=== PATIENT | female | born 1985 | race American Indian/Alaskan Native ===

== ENCOUNTER 2016-10-27 13:27 | Emergency (ER) | payer SELFPAY ==
--- NOTE | 2016-10-27 15:23 | Emergency Department Report ---
Chief Complaint: Psych Stated Complaint: exhaustion Time Seen by Provider: 10/27/16 15:05 - HPI History of Present Illness: Patient here reports that she walked from [place] and not sure when she got here.denies SI or Homicide ideation. Report confusion and exhaustion. Pain to both and legs. H/o psychiatric disorder. Take lithium but has not taken for four days. denies nausea or vomiting. Pain 5/10 and achy worst with movement and better rest. Pt lives in [place]. Denies abdominal pain - ROS Review of Systems: All systems are negative unless stated in HPI above - Exam Vital Signs: Vital Signs 10/27/16 14:51 Temperature 98.1 F Pulse Rate 88 Respiratory 18 Rate Blood Pressure 126/66 O2 Sat by Pulse 100 Oximetry Physical Exam: General: This is a 31 year old pt who looks tires. Non-toxic in appearance PSYCH: Denies SI or HI. normal mood and behavior. denies hallucination. MSE screening note: Focused history and physical exam performed. Due to findings the following was ordered:See MDM ED Medical Decision Making - Medical Decision Making MDM: Patient screened by provider in triage area. Appropriate protocol initiated and patient to be seen in main ED by MD ED Disposition for MSE Condition: Stable
[2016-10-27 15:43] LABS: Basophils % (Auto) 0.8 % (0.0-1.8); Hematocrit 31.3 % (30.3-42.9); Hemoglobin 9.9 gm/dl (10.1-14.3); Mean Corpuscular HGB Conc 32 % (30-34); Mean Corpuscular Volume 76 fl (79-97); Platelet Count 351 K/mm3 (140-440); White Blood Count 8.6 K/mm3 (4.5-11.0)
[2016-10-27 15:44] LABS: Mean Corpuscular Hemoglobin 24 pg (28-32)
[2016-10-27 15:55] LABS: Anion Gap 18 mmol/L; BUN/Creatinine Ratio 6.25; Blood Urea Nitrogen 5 mg/dL (7-17); Calcium 8.8 mg/dL (8.4-10.2); Carbon Dioxide 22 mmol/L (22-30); Chloride 105.5 mmol/L (98-107); Glucose 87 mg/dL (65-100); Potassium 3.9 mmol/L (3.6-5.0); Sodium 142 mmol/L (137-145)
[2016-10-27] MEDS ORDERED: ALUM-MAG HYDROX-SIMETH 200-200-20MG/5ML PO PRN (17:23)
[2016-10-27] MEDS ORDERED: TYLENOL PO PRN (17:23)
--- NOTE | 2016-10-27 17:30 | Emergency Department Report ---
HPI - General Chief Complaint: Psych Time Seen by Provider: 10/27/16 15:23 - HPI HPI: The patient is a 30-year-old female with a history of schizophrenia, presents for evaluation of mental health. The patient reports constant, severe, sadness and hearing voices, present for the past one week. She shares that she hitch hiked from [place]. She states that she does not know why she did this. The patient denies fever, headache, unexplained weight loss or weight gain, heat or cold intolerance, skin, hair, or nail changes, neuro deficits, homicidal ideations, or visual hallucinations. ED Past Medical Hx - Past Medical History Previous Medical History?: Yes Hx Psychiatric Treatment: Yes - Surgical History Past Surgical History?: No - Social History Smoking Status: Current Every Day Smoker Substance Use Type: Alcohol, Prescribed - Medications Home Medications: Home Medications Medication Instructions Recorded Confirmed Last Taken Type Amoxicillin/K Clav Tab [Augmentin 1 tab PO Q12HR 10/27/16 10/27/16 Unknown History 875 mg] Ferrous Sulfate [Feosol] 325 mg PO BID 10/27/16 10/27/16 Unknown History [place] Carbonate [Eskalith] 150 mg PO 10/27/16 Unknown History Trazodone HCl [Trazodone HCl] PO 1XW 10/27/16 Unknown History ED Review of Systems ROS: Stated complaint: exhaustion Other details as noted in HPI Constitutional: denies: fever ENT: denies: throat or neck pain Respiratory: denies: cough, shortness of breath Cardiovascular: denies: chest pain Endocrine: denies unexplained weight loss or gain Gastrointestinal: denies: abdominal pain, nausea Genitourinary: denies: dysuria Musculoskeletal: denies: leg swelling Skin: denies: rash Neurological: reports headache Hematological/Lymphatic: denies: easy bleeding or easy bruising Psych: reports sadness Physical Exam - Physical Exam Vital Signs: Vital Signs 10/27/16 14:51 Temperature 98.1 F Pulse Rate 88 Respiratory 18 Rate Blood Pressure 126/66 O2 Sat by Pulse 100 Oximetry Physical Exam: General: well-nourished, well-developed, no acute distress Head: Normocephalic, atraumatic Eyes: normal sclera ENT: Mucous membranes are pink and moist Neck: trachea midline, neck supple, No neck stiffness, no cervical adenopathy Respiratory: Breath sounds equal bilaterally, no wheezing, rales, or rhonchi Cardio: S1 and S2 present, no murmurs, rubs, gallops, capillary refill is brisk Abdomen: Normoactive bowel sounds, soft abdomen, no rigidity, no guarding or rebound tenderness Chest WALL/Back: No tenderness to palpation of the chest wall, no CVA tenderness with percussion Musc: No pitting edema Skin: No rash Neuro: no facial drooping, normal speech Psych: Flat affect, patient delusional, poor insight, positive auditory hallucinations ED Course Vital Signs 10/27/16 14:51 Temperature 98.1 F Pulse Rate 88 Respiratory 18 Rate Blood Pressure 126/66 O2 Sat by Pulse 100 Oximetry ED Medical Decision Making - Lab Data Result diagrams: 10/27/16 15:22 10/27/16 15:22 - Medical Decision Making The patient was seen and examined by myself. The patient is placed on a engine buildup mechanic and continuous pulse ox. On initial evaluation, the patient was found to be in no distress. Labs are obtained. Lab results are grossly unremarkable. The patient is medically clear. Mental health is consulted. Mental health evaluates the patient and agrees that the patient is exhibiting signs and symptoms consistent with acute psychosis. An extended family member the patient was contacted and they share that the patient was released from a mental health facility in [place] and that she has been missing since release. She says that the patient's mother will want to pick the patient. A 1013 is completed. The patient will be admitted to a psychiatric facility once bed placement is obtained. Critical care attestation.: If time is entered above; I have spent that time in minutes in the direct care of this critically ill patient, excluding procedure time. ED Disposition Clinical Impression: Paranoid type schizophrenia, chronic state with acute exacerbation, Acute psychosis Depressed Qualifiers: Depression Type: major depressive disorder Major depression recurrence: single episode Active/Remission status: currently active Major depression episode severity: moderate Qualified Code(s): F32.1 - Major depressive disorder, single episode, moderate Disposition: DC/TX-65 PSY HOSP/PSY UNIT Is pt being admited?: No Does the pt Need Aspirin: No Condition: Serious Time of Disposition: 17:24
[2016-10-27 18:59] LABS: Urine Drugs of Abuse Note Disclamer
[2016-10-27 19:08] LABS: Bilirubin,Urine NEG (Negative); Blood,Urine NEG (Negative); Ketones,Urine 20 mg/dL (Negative); Leukocyte Esterase,Urine NEG (Negative); Mucus,Urine 3+ /HPF; Nitrite,Urine NEG (Negative); Urobilinogen,Urine < 2.0 mg/dL (<2.0)
--- NOTE | 2016-10-28 19:43 | Consultation ---
History of Present Illness - Reason for Consult Reason for consult: psych consult - Chief Complaint Chief complaint: cc: "took off walking and got lost" Patient is a 30 year old WM with prior psych history of SCPT who presents to [facility] after noting that she's been walking for several days lost and ended up in the hospital. When asked what has been occurring the last several days, patient notes that she's unable to remember the last few days of events. She admits that she's depression but is vague with details. She denies any issues with SI. No AV, VH, or HI either. She denies any current psychosis or euphoria. He current preoccupation is to get back on several of her meds and for her family to come pick her up. Medications and Allergies Allergies Allergy/AdvReac Type Severity Reaction Status Date / Time No Known Allergies Allergy Unverified 10/27/16 15:02 Home Medications Medication Instructions Recorded Confirmed Last Taken Type Amoxicillin/K Clav Tab [Augmentin 1 tab PO Q12HR 10/27/16 10/27/16 Unknown History 875 mg] Ferrous Sulfate [Feosol] 325 mg PO BID 10/27/16 10/27/16 Unknown History [place] Carbonate [Eskalith] 150 mg PO 10/27/16 Unknown History Trazodone HCl [Trazodone HCl] PO 1XW 10/27/16 Unknown History Active Meds: Active Medications Acetaminophen (Tylenol) 650 mg PO Q4HR PRN PRN Reason: Pain MILD(1-3)/Fever >100.5/PATEL Al Hydrox/Mg Hydrox/Simethicone (Alum-Mag Hydrox-Simeth [id number]/5ml) 30 ml PO Q4HR PRN PRN Reason: Indigestion Past psychiatric history - Past Medical History Past Medical History: seizures - past Psychiatric treatment and history psychiatric treatment history: Inpt: patient can't give details- she claims recent inpt stay a couple of week ago in [place], [place]. h/o SCPT dx [address] [employer] patient notes prior psych meds of Gabapentin, [place] and Haldol No family psych history No Abuse history No substance abuse history - Social History Social history: other (lives with family in [place]. not dating, no children or work , 9th grade education, has family support) Mental Status Exam - Vital signs Last Vital Signs Temp 98.4 F 10/28/16 18:39 Pulse 60 10/28/16 18:39 Resp 16 10/28/16 18:39 BP 103/70 10/28/16 18:39 Pulse Ox 100 10/28/16 18:39 - Exam Orientation: time, place, person Affect: normal Mood: appropriate Thought content: other (impoverished) Thought Process: Disorganized Perceptions: none Speech: normal rate and pattern Concentration: distractible Motor activity: restless Level of consciousness: alert Memory: Recent Impaired (patient is able to spell WORLD backwards, repeats 7 digits correctly, no time date and place, names three presidnets backwards) Results Result Diagrams: 10/27/16 15:22 10/27/16 15:22 All other labs normal. Assessment and Plan Assessment and plan: Patient is a 30 year old WM with prior psych history of SCPT who presents to [facility] after noting that she's been walking for several days lost and ended up in the hospital. When asked what has been occurring the last several days, patient notes that she's unable to remember the last few days of events. A/P: SCPT versus SCAD-unspecified disorganization: use risperdal at 1mg po qhs for psychosis- discussed risks, side effects and benefits mood: use [place] 300mg po BID restart outpt gabapentin
[2016-10-28] MEDS: NEURONTIN PO SCH (22:16)
[2016-10-28] MEDS: RisperDAL PO SCH (22:16)
[2016-10-28] MEDS: ESKALITH PO SCH (22:16)
[2016-10-29] MEDS: ESKALITH PO SCH ×2 (11:00→22:01)
[2016-10-29] MEDS: NEURONTIN PO SCH ×2 (11:00→22:05)
--- NOTE | 2016-10-29 13:23 | Progress Note ---
Subjective - Reason for Consult Consult date: 10/29/16 Reason for consult: Psychiatry Follow-up - Chief Complaint Chief complaint: "What day is it" Patient is a 30 year old WM with prior psych history of SCPT who presents to [facility] after noting that she's been walking for several days lost and ended up in the hospital. Today patient is calm and cooperative during the assessment. She stated that she walked from [place]. She could not state why she walked from [place] to [place]. She stated that she have not taken her medications in weeks. She stated that she does see a psychiatrist in [place]. She rate her depression 7/10, with 10 being the worse. She denies SI/HI's and AVH's. Patient still presenting with a disorganized thought process. She stated that her family will pick her up when possible. Mental Status Exam - Vital signs Last Vital Signs Temp 98 F 10/29/16 04:24 Pulse 71 10/29/16 04:24 Resp 16 10/29/16 08:02 BP 104/70 10/29/16 04:24 Pulse Ox 18 L 10/29/16 08:02 - Exam Narrative exam: MSE: Appearance: calm, cooperative Behavior: regular eye contact Speech: regular rate and tone Mood: "depressed" withdrawn Affect: labile Thought Process: disorganized Thought Content: denies SI/HI's and AVH's Motor Activity: ambulatory Cognition: A/O x3 Insight: limited Judgment: limited Assessment and Plan Impression: SCPT vs SCAD - Unspecified. Today patient is calm and cooperative during the assessment. Patient has a disorganized thought process. Recommendation/Plan: Continue 1013 with placement to inpatient psy services. Continue [place] 300 mg Po BId for mood, Risperdal 1 mg PO HS for psychosis - discussed risks, side effects and benefits and Gabapentin 300 mg PO BID.
[2016-10-29] MEDS: RisperDAL PO SCH (22:08)
[2016-10-30] MEDS: ESKALITH PO SCH ×2 (09:31→21:30)
[2016-10-30] MEDS: NEURONTIN PO SCH ×2 (09:31→21:30)
--- NOTE | 2016-10-30 13:45 | Progress Note ---
Subjective - Reason for Consult Consult date: 10/30/16 Reason for consult: Psychiatry Follow-up - Chief Complaint Chief complaint: "Can my family pick me up" Patient is a 30 year old WM with prior psych history of SCPT who presents to [facility] after noting that she's been walking for several days lost and ended up in the hospital. Today patient is calm and cooperative during the assessment. She is still presenting with a disorganized thought process. I had to interject several times during the conversation about how the 1013. She continue to say, "I don't understand the 1013." Also, she is adamant about her family picking her up. Her family lives in [place]. She denies any side effects of her medications. Mental Status Exam - Vital signs Last Vital Signs Temp 98.1 F 10/30/16 06:00 Pulse 66 10/30/16 06:00 Resp 14 10/30/16 06:00 BP 115/64 10/30/16 06:00 Pulse Ox 18 L 10/29/16 08:02 - Exam Narrative exam: MSE: Appearance: calm, cooperative Behavior: regular eye contact Speech: regular rate and tone Mood: "I still feel down" Affect: labile Thought Process: disorganized Thought Content: denies SI/HI's and AVH's Motor Activity: ambulatory Cognition: A/O x3 Insight: limited Judgment: limited Assessment and Plan Impression: SCPT vs SCAD - Unspecified. Today patient is calm and cooperative during the assessment. Patient has a disorganized thought process. Recommendation/Plan: Continue 1013 with placement to inpatient psy services. Continue [place] 300 mg PO BID for mood, Risperdal 1 mg PO HS for psychosis - discussed risks, side effects and benefits and Gabapentin 300 mg PO BID. Possibly increase antipsychotic in 24 hours if patient's disorganize thought process don't improve.
[2016-10-30] MEDS: RisperDAL PO SCH (21:30)
[2016-10-31] MEDS: ESKALITH PO SCH ×2 (10:26→22:05)
[2016-10-31] MEDS: NEURONTIN PO SCH ×2 (10:27→23:05)
--- NOTE | 2016-10-31 15:10 | Progress Note ---
Subjective - Reason for Consult Consult date: 10/31/16 Reason for consult: follow up - Chief Complaint Chief complaint: "Send me to a halfway." Patient is a 30 year old WM with prior psych history of SCPT who presents to [facility] after noting that she's been walking for several days lost and ended up in the hospital. Today patient is calm and cooperative during the assessment. She is still presenting with a disorganized thought process. She is perseverative about leaving the hospital. She states she can go to a halfway and she will find a way to get home. Her goal is to return home to [place] but she is unable to logically explain how she will do this. Her family planned to help her get home. She denies any side effects of her medications. Mental Status Exam - Vital signs Last Vital Signs Temp 98.6 F 10/31/16 14:02 Pulse 57 L 10/31/16 14:02 Resp 18 10/31/16 14:02 BP 108/72 10/31/16 14:02 Pulse Ox 96 10/31/16 09:00 Assessment and Plan MSE: Appearance: calm, cooperative Behavior: regular eye contact Speech: regular rate and tone Mood: labile Affect: labile Thought Process: disorganized, perseverative Thought Content: denies SI/HI's and AVH's Motor Activity: ambulatory Cognition: A/O x3 Insight: limited Judgment: limited Assessment and Plan Impression: SCPT vs SCAD - Unspecified. Today patient is calm and cooperative during the assessment. Patient has a disorganized thought process. Recommendation/Plan: Continue 1013 with placement to inpatient psy services. Continue [place] 300 mg PO BID for mood, Risperdal 1 mg PO HS for psychosis - discussed risks, side effects and benefits and Gabapentin 300 mg PO BID.
[2016-10-31] MEDS: RisperDAL PO SCH (23:05)
[2016-11-01] MEDS: ESKALITH PO SCH ×2 (10:02→22:19)
[2016-11-01] MEDS: NEURONTIN PO SCH ×2 (10:06→22:17)
--- NOTE | 2016-11-01 11:13 | Progress Note ---
Subjective - Reason for Consult Consult date: 11/01/16 Reason for consult: Psychiatry Follow-up - Chief Complaint Chief complaint: "When can I leave" Patient is a 30 year old WM with prior psych history of SCPT who presents to [facility] after noting that she's been walking for several days lost and ended up in the hospital. Today patient is cooperative, but irritable during the assessment. She is still presenting with a disorganized thought process. She is adamant about leaving the hospital. She would like to go to a detention and find her own way home ([place]). Patient cannot not logically state why she wandered from her home state ([place]) and how she plan to return home once discharged. She does have family in [place] and they are willing to pick her up. She denies any side effects of her medications. Mental Status Exam - Vital signs Last Vital Signs Temp 98.3 F 11/01/16 10:19 Pulse 65 11/01/16 10:19 Resp 20 11/01/16 10:29 BP 107/60 11/01/16 10:19 Pulse Ox 100 11/01/16 10:29 - Exam Narrative exam: MSE: Appearance: calm, cooperative Behavior: regular eye contact Speech: regular rate and tone Mood: "irritated" Affect: congruent to mood Thought Process: disorganized, perseverative Thought Content: denies SI/HI's and AVH's Motor Activity: ambulatory Cognition: A/O x3 Insight: limited Judgment: limited Assessment and Plan Impression: SCPT vs SCAD - Unspecified. Today patient is calm and cooperative during the assessment. Patient has a disorganized thought process. Recommendation/Plan: Continue 1013 with placement to inpatient psy services. Continue [place] 300 mg PO BID for mood, Risperdal 1 mg PO HS for psychosis - discussed risks, side effects and benefits and Gabapentin 300 mg PO BID. [place] level in the AM.
[2016-11-01] MEDS: RisperDAL PO SCH (22:18)
[2016-11-02 09:26] VITALS: BP 115/63
--- NOTE | 2016-11-02 10:22 | Progress Note ---
Subjective - Reason for Consult Consult date: 11/02/16 Reason for consult: Psychiatry Follow-up - Chief Complaint Chief complaint: "Hopefully I can leave today" Patient is a 30 year old WM with prior psych history of SCPT who presents to [facility] after noting that she's been walking for several days lost and ended up in the hospital. Today patient is calm and cooperative during the assessment. She was more engaging and willing to discuss her behaviors. She stated that she was recently released from a mental health facility and decided to return home (a city in [place]). She feels that was a "bad" decison, because she don't get along with her mother. She stated her mother don't want her around, so she decided to leave. She stated that she did walk, but hitch hiked most of the way to [place]. She stated that she needed her medications, so she decided to check herself into the nearest hospital ([facility]). She stated that she would like to [facility]. She stated she is willing to go to a care home. She asked for local referrals for outpatient psy services. She denies SI/HI's, AVH's, and depression symptoms. She denies any side effects of her medications. She stated that she does not like opening up about her issues reference her family issues. Mental Status Exam - Vital signs Last Vital Signs Temp 98.0 F 11/02/16 09:24 Pulse 67 11/02/16 09:24 Resp 20 11/02/16 09:26 BP 115/63 11/02/16 09:24 Pulse Ox 99 11/02/16 09:26 - Exam Narrative exam: MSE: Appearance: calm, cooperative Behavior: regular eye contact Speech: regular rate and tone Mood: "I'm okay" Affect: congruent to mood Thought Process: circumstantial Thought Content: denies SI/HI's and AVH's Motor Activity: ambulatory Cognition: A/O x3 Insight: fair Judgment: fair Assessment and Plan Impression: SCPT vs SCAD - Unspecified. Today patient is calm and cooperative during the assessment. Patient is no threat top self. Patient is homeless. lithium level 0.5. Recommendation/Plan: Rescind 1013. Continue [place] 300 mg PO BID for mood, Risperdal 1 mg PO HS for mood, and Gabapentin 300 mg PO BID. Discussed risks, side effects, and benefits of Risperdal. Patient given outpatient psy services information for [facility]. Refinery Operator Assistant involvement, patient will need placement.
[2016-11-02] MEDS: ESKALITH PO SCH (10:51)
[2016-11-02] MEDS: NEURONTIN PO SCH (10:51)
--- NOTE | 2016-11-02 18:15 | Event Note ---
Date: 11/02/16 Evaluated patient patient denies having any suicidal or homicidal ideation. Patient states that she will follow-up with [facility]. I will send patient out as per psychiatry's recommendation and 1013 has been rescinded. Patient is alert and oriented 4 she has goal-directed behavior. She is also eager to leave. Patient is able to make her own decisions. Discussed plan with patient and she agrees with discharge.
== END 2016-11-02 18:44 ==
LOC: EDBD → EEVIPCON 13:27 → ED 13:27
DX: F23 Brief psychotic disorder (principal); F32.9 Major depressive disorder, single episode, unspecified; F17.200 Nicotine dependence, unspecified, uncomplicated
CPT/HCPCS: 36415; 80048; 80178; 80307; 81001; 81025; 85025; 99284; G0480; 80320